=== PATIENT | female | born 1950 | race Caucasian/White ===

== ENCOUNTER → 2020-08-30 | Outpatient (CLI) | payer BC | LOC: RAD 08:36 | DX: M16.11 Unilateral primary osteoarthritis, right hip (principal); M19.071 Primary osteoarthritis, right ankle and foot; M25.561 Pain in right knee ==

== ENCOUNTER 2021-05-10 07:40 | Emergency (ER) | payer BC ==
[2021-05-10] MEDS ORDERED: ESTRACE 1MG1 MG/TAB PO (07:53)
[2021-05-10] MEDS ORDERED: ATORVASTATIN CA40 MG PO (07:53)
[2021-05-10] MEDS ORDERED: LUTEIN-ZEAXANT1 EAC1 PO (07:53)
[2021-05-10] MEDS ORDERED: ASPIRIN E.C. 8181 MG PO (07:54)
[2021-05-10] MEDS ORDERED: CO Q-1010 M2 (07:54)
[2021-05-10] MEDS ORDERED: VITAMIN D310 MC1 (07:54)
[2021-05-10 08:14] LABS: BASO # 0.03 K/mm3 (0.02-0.10); EOS # 0.16 K/mm3 (0.04-0.40); EOS % 3.4 % (1.0-5.0); HEMATOCRIT 38.5 % (37.0-47.0); HEMOGLOBIN 12.2 g/dL (12.5-16.0); MEAN CELL VOLUME 98 fl (78-100); MEAN CORPUSCULAR HEMOGLOBIN 31 pg (27-31); MEAN CORPUSCULAR HGB CONC 32 g/dL (33-37); MEAN PLATELET VOLUME 10.5 fl (7.4-10.4); MONO # 0.55 K/mm3 (0.20-0.80); NEU # 2.73 K/mm3 (1.40-6.50); PLATELET COUNT 246 K/mm3 (130-400); RED BLOOD COUNT 3.95 M/mm3 (4.10-5.30); RED CELL DISTRIBUTION WIDTH 13.1 % (11.5-14.5); WHITE BLOOD COUNT 4.8 K/mm3 (4.8-10.8)
[2021-05-10 08:25] LABS: ALBUMIN 3.8 g/dL (3.4-4.8); POTASSIUM 3.8 mmol/L (3.5-5.1); SODIUM 139 mmol/L (136-145)
[2021-05-10 08:27] LABS: CALCIUM 8.3 mg/dL (8.3-10.5)
[2021-05-10 08:28] LABS: GLUCOSE 107 mg/dL (65-105); TOTAL PROTEIN 7.1 g/dL (6.2-8.1)
[2021-05-10 08:29] LABS: CARBON DIOXIDE 23 mmol/L (23-31)
[2021-05-10 08:30] LABS: TOTAL BILIRUBIN 0.4 mg/dL (0.2-1.2)
[2021-05-10 08:33] LABS: AST-SGOT 15 U/L (5-34)
[2021-05-10 08:34] LABS: ALT/SGPT 10 U/L (0-55)
[2021-05-10 08:41] LABS: TROPONIN-I < 0.030 ng/mL (<0.030)
[2021-05-10 08:42] LABS: LIPASE 27 U/L (8-78)
[2021-05-10] MEDS ORDERED: PRILOSEC 20MG20 MG PO (09:28)
[2021-05-10 09:45] VITALS: BP 125/61
== END 2021-05-10 10:00 | disposition home or self-care (01) ==
LOC: ED 07:40
PROVIDERS: Physician Assistant
DX: K21.9 Gastro-esophageal reflux disease without esophagitis (principal); E78.5 Hyperlipidemia, unspecified; Z79.82 Long term (current) use of aspirin; Z79.899 Other long term (current) drug therapy